=== PATIENT | female | born 1965 | race American Indian/Alaskan Native ===

== ENCOUNTER 2019-05-14 23:56 | Emergency (ER) | payer SELFPAY ==
[2019-05-15 00:02] VITALS: BP 172/78
[2019-05-15] MEDS ORDERED: MORPHINE 4 MG/1 ML INJ IV ONE (00:42)
[2019-05-15] MEDS ORDERED: KETOROLAC 30 MG/1 ML INJ IV ONE (00:42)
--- NOTE | 2019-05-15 01:12 | XRay Report ---
Right hip 2 views INDICATION: Right hip pain IMPRESSION: The right hip appears intact. 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 Signer Name: Chip Mobley MD Signed: 05/15/2019 1:08 AM Workstation Name: [id number]
[2019-05-15 01:13] LABS: Hemoglobin 9.3 gm/dl (10.1-14.3); Mean Corpuscular HGB Conc 32 % (30-34); Mean Corpuscular Volume 73 fl (79-97); Platelet Count 129 K/mm3 (140-440); Red Blood Count 3.97 M/mm3 (3.65-5.03); Red Cell Distribution Width 16.4 % (13.2-15.2)
[2019-05-15 01:33] LABS: BUN/Creatinine Ratio 11; Blood Urea Nitrogen 9 mg/dL (7-17); Calcium 8.8 mg/dL (8.4-10.2); Hemolysis Index 0
--- NOTE | 2019-05-15 01:43 | Emergency Department Report ---
ED Extremity Problem HPI - General Chief complaint: Pain General Stated complaint: LT HIP PAIN TO WALLACE Time Seen by Provider: 05/15/19 00:21 Source: patient Mode of arrival: Ambulatory Limitations: No Limitations - History of Present Illness Initial comments: pt is a 54-year-old female presents emergency room with complaints of right hip pain that radiates down her leg that began yesterday morning. she denies any fall or injury. She denies any leg swelling, numbness, weakness. pt has been ambulatory today. She states that she has had this discomfort once before in the past. She has a past medical history of anemia, SVT, PE. States that she t akes folate, eliquis, metoprolol daily. denies any allergies medications. Severity scale (0 -10): 10 - Related Data Home Medications Medication Instructions Recorded Confirmed Last Taken Eliquis mg PO 05/15/19 Unknown Previous Rx's Medication Instructions Recorded Last Taken Type Acetaminophen [Tylenol] 650 mg PO BID PRN #24 capsule 05/15/19 Unknown Rx Cyclobenzaprine [Flexeril] 10 mg PO QHS PRN #12 tablet 05/15/19 Unknown Rx Allergies Allergy/AdvReac Type Severity Reaction Status Date / Time No Known Allergies Allergy Unverified 05/15/19 00:15 ED Review of Systems ROS: Stated complaint: LT HIP PAIN TO WALLACE Other details as noted in HPI Comment: All other systems reviewed and negative ED Past Medical Hx - Past Medical History Previous Medical History?: Yes Additional medical history: Beta Thallessemia, PE, SVT - Surgical History Past Surgical History?: Yes Additional Surgical History: Tubal Ligation - Social History Smoking Status: Never Smoker Substance Use Type: None - Medications Home Medications: Home Medications Medication Instructions Recorded Confirmed Last Taken Type Acetaminophen [Tylenol] 650 mg PO BID PRN #24 capsule 05/15/19 Unknown Rx Cyclobenzaprine [Flexeril] 10 mg PO QHS PRN #12 tablet 05/15/19 Unknown Rx Eliquis mg PO 05/15/19 Unknown History ED Physical Exam - General Limitations: No Limitations General appearance: alert, in no apparent distress - Head Head exam: Present: atraumatic, normocephalic - Eye Eye exam: Present: normal appearance - ENT ENT exam: Present: mucous membranes moist - Respiratory Respiratory exam: Present: normal lung sounds bilaterally. Absent: respiratory distress, wheezes, rales, rhonchi, stridor, chest wall tenderness, accessory muscle use, decreased breath sounds, prolonged expiratory - Cardiovascular Cardiovascular Exam: Present: regular rate, normal rhythm, normal heart sounds. Absent: systolic murmur, diastolic murmur, rubs, gallop - Extremities Exam Extremities exam: Present: other (no bony TTP of the entire RLE, FROM of the right hip, knee, ankle, foot, mild discomfort upon full flexion and external r otation of the hip, no deformity, no joint laxity, no edema of the RLE, neurovasculary intact, no erythema, no increased warmth, no skin changes) - Neurological Exam Neurological exam: Present: alert, oriented X3 - Psychiatric Psychiatric exam: Present: normal affect, normal mood - Skin Skin exam: Present: warm, dry, intact ED Course Vital Signs 05/15/19 05/15/19 00:01 00:45 Temperature 98.3 F Pulse Rate 67 Respiratory 18 18 Rate Blood Pressure 172/78 O2 Sat by Pulse 97 98 Oximetry ED Medical Decision Making - Lab Data Result diagrams: 05/15/19 00:59 05/15/19 00:59 Lab Results 05/15/19 05/15/19 Range/Units 00:59 00:59 WBC 9.7 (4.5-11.0) K/mm3 RBC 3.97 (3.65-5.03) M/mm3 Hgb 9.3 L (10.1-14.3) gm/dl Hct 29.0 L (30.3-42.9) % MCV 73 L (79-97) fl MCH 23 L (28-32) pg MCHC 32 (30-34) % RDW 16.4 H (13.2-15.2) % Plt Count 129 L (140-440) K/mm3 Sodium 140 (137-145) mmol/L Potassium 3.9 (3.6-5.0) mmol/L Chloride 104.6 (98-107) mmol/L Carbon Dioxide 24 (22-30) mmol/L Anion Gap 15 mmol/L BUN 9 (7-17) mg/dL Creatinine 0.8 (0.7-1.2) mg/dL Estimated GFR > 60 ml/min BUN/Creatinine Ratio 11 % Glucose 144 H (65-100) mg/dL Calcium 8.8 (8.4-10.2) mg/dL - Radiology Data Radiology results: report reviewed Right hip 2 views INDICATION: Right hip pain IMPRESSION: The right hip appears intact. 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 Signer Name: Chip Mobley MD Signed: 05/15/2019 1:08 AM Workstation Name: [id number] Transcribed By: YEMI Dictated By: Chip Mobley MD Electronically Authenticated By: Chip Mobley MD Signed Date/Time: 05/15/19107 DD/ 6 TD/TT: - Medical Decision Making pt is a 54-year-old female presents emergency room with complaints of right hip pain that radiates down her leg that began yesterday morning. she denies any fall or injury. She denies any leg swelling, numbness, weakness. pt has been ambulatory today. She states that she has had this discomfort once before in the past. She has a past medical history of anemia, SVT, PE. States that she takes folate, eliquis, metoprolol daily. denies any allergies medications. vitals are stable. on exam: no bony TTP of the entire RLE, FROM of the right hip, knee, ankle, foot, mild discomfort upon full flexion and external rotation of the hip, no deformity, no joint laxity, no edema of the RLE, neurovasculary intact, no erythema, no increased warmth, no skin changes. XR right hip: The ri ght hip appears intact. 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 labs are stable. H/H is 9.3/29.0. mildly decreased PLT at 129. Patient given morphine and Toradol and her symptoms completely resolved. Patient was resting comfortably in stretcher. discussed results with patient. Given prescription for Flexeril and Tylenol. advised pt to Please take medication as prescribed. Do not drive or operate heavy machinery while taking muscle relaxer. May use ice pack, heating pad, rest, epsom salt bath. follow with up with an orthopedic doctor in the next 2-3 days. Return to the emergency room for any new or worsening symptoms. - Differential Diagnosis strain, sprain, fx, dislocation, AVN, tendonitis, arthritis, DJD Critical care attestation.: If time is entered above; I have spent that time in minutes in the direct care of this critically ill patient, excluding procedure time. ED Disposition Clinical Impression: Chronic anemia Hip pain Qualifiers: Laterality: right Qualified Code(s): M25.551 - Pain in right hip Disposition: TO HOME OR SELFCARE Is pt being admited?: No Does the pt Need Aspirin: No Condition: Stable Instructions: Muscle Strain (ED), Arthralgia (ED) Additional Instructions: Please take medication as prescribed. Do not drive or operate heavy machinery while taking muscle relaxer. May use ice pack, heating pad, rest, epsom salt bath. follow with up with an orthopedic doctor in the next 2-3 days. Return to the emergency room for any new or worsening symptoms. Prescriptions: Cyclobenzaprine [Flexeril] 10 mg PO QHS PRN #12 tablet PRN Reason: Muscle Spasm Acetaminophen [Tylenol] 650 mg PO BID PRN #24 capsule PRN Reason: pain Referrals: RHONA AZAR MD [Staff Physician] - 2-3 Days Time of Disposition: 01:38 Print Language: BENGALI
== END 2019-05-15 01:59 | disposition home or self-care (01) ==
LOC: ED 23:56
DX: M25.551 Pain in right hip (principal); D64.9 Anemia, unspecified; Z98.51 Tubal ligation status; Z98.890 Other specified postprocedural states
CPT/HCPCS: 36415; 73502; 80048; 85027; 96374; 96375; 99284; J1885; J2270